=== PATIENT | male | born 1930 | race Caucasian/White ===

== ENCOUNTER 2017-02-01 05:36 | Day surgery (SDC) | payer MEDICARE, OTHER ==
[2017-02-01] VITALS (10 sets, daily range): BP systolic 106–138; BP diastolic 62–79; PULSE 64–92; RESP 11–18; O2SAT 93–96
[~2017-02-01] VITALS: Ht 188 cm; Wt 105.3 kg
[~2017-02-01 05:36] MED LIST: ALFU10TA11 PO; CIPR-231 PO; FOLIC ACID; IRON; Lactated Ringer's 1,000 ML IV ONE; RANI150C4 PO; TRAV5DRO OP
[2017-02-01] MEDS ORDERED: Dexamethasone 4 mg/mL Inj ONE (05:37)
[2017-02-01] MEDS ORDERED: fentaNYL-PF 50 mCg/mL 2 mL Inj ONE (05:37)
[2017-02-01] MEDS ORDERED: Ondansetron 2 mg/mL 2 mL Inj ONE (05:37)
[2017-02-01] MEDS ORDERED: Propofol 10,000 mCg/mL 20 mL Inj ONE (05:37)
[2017-02-01] MEDS ORDERED: Levofloxacin 500 mg/100 mL D5W IV SCH (06:00)
[2017-02-01 06:28] LABS: BASOPHILS % (AUTO) 0.4 % (0-3); EOSINOPHILS % (AUTO) 0.1 % (0-5); MONOCYTES % (AUTO) 15.8 % (4-12); Mean Corpuscular Hemoglobin 30.2 pg (27.0-35.0); Mean Corpuscular Volume 92.5 fL (81-100); Platelet Count 110 bil/L (150-400)
[2017-02-01] MEDS: Acetaminophen IV 1,000 mg IV SCH ×2 (06:30→07:47)
[2017-02-01] MEDS ORDERED: Labetalol 5 mg/mL 4 mL Inj IV PRN (08:00)
[2017-02-01] MEDS ORDERED: MetoCLOpramide 5 mg/mL 2 mL Inj IVPUSH PRN (08:00)
[2017-02-01] MEDS ORDERED: Phenylephrine 10,000 mCg/mL Inj IVPUSH PRN (08:00)
[2017-02-01] MEDS ORDERED: fentaNYL-PF 50 mCg/mL 2 mL Inj IVPUSH PRN (08:00)
[2017-02-01] MEDS ORDERED: Ondansetron 2 mg/mL 2 mL Inj IVPUSH PRN (08:00)
[2017-02-01] MEDS ORDERED: Lactated Ringer's 500 ML IV PRN (08:00)
[2017-02-01] MEDS ORDERED: EPHEDrine Sulfate 50 mg/mL Inj IVPUSH PRN (08:00)
[2017-02-01] MEDS ORDERED: Atropine 0.4 mg/mL Inj IVPUSH PRN (08:00)
[2017-02-01] MEDS ORDERED: Lactated Ringer's 1,000 ML IV SCH (08:00)
--- NOTE | 2017-02-01 08:00 | PCM.HPANE ---
Patient Data Surgeon Admitting Provider: Attending Provider:Aleksandar Frausto MD [facility] Other Provider:Dafne Alford Anesthesia Reason for Visit Bladder Neck Contracture Ht/WT & BMI Height (Feet): 6 Height (Inches): 2.00 Weight (Kilograms): 105.3 Body Mass Index 29.00 Allergies Coded Allergies: Qhhdqfe-Ier-Xzt Reductase Inhibitor (Verified Allergy, Severe, BLEEDING (LIPITOR,SIMVASTATIN), 05/01/16) erythromycin base (Verified Allergy, Severe, ELEV. BLOOD PRESSURE, DIZZINESS, 05/01/16) valsartan (Verified Allergy, Severe, ARRTHYMIAS, 05/01/16) cephalexin (Verified Allergy, Unknown, unknown (has taken cephazolin w/o problems), 05/01/16) pantoprazole (Verified Allergy, Unknown, UNKNOWN, 05/01/16) dabigatran etexilate (Verified Adverse Reaction, Severe, BLEEDING, 05/01/16 ) ciprofloxacin HCl (Verified Adverse Reaction, Mild, HEART "SKIPS", 01/28/17 ) pt currently taking this orally for UTI and tolerating- 01/28/17 Past Anesthesia History Anesthesia History: Denies:: Abnormal Airway, Anesthesia Reactions, Difficult Intubation, Fam Anesthesia Reaction, Fam Malignant Hypertherm, Malignant Hyperthermia Diabetes History Hx Diabetes?: No MRSA MRSA: No Medications Blood Thinner: Aspirin Hypertension Medication: No Home Meds Incl Beta Mesfin: No Reported Medications Ciprofloxacin (Cipro)500 Mg [id number] Mg PO BID Ref 0 01/28/17 Travoprost (Travatan Z)5 Ml Drops5 Ml OP DAILY 01/28/17 Ranitidine 150 Mg [id number] Mg PO BID Ref 0 01/28/17 [iron/folic acid] No Conflict Check1 Tab DAILY 01/28/17 Alfuzosin ER 10 Mg Tab.er.24h10 Mg PO DAILY 01/28/17 Discontinued Reported Medications Tamsulosin (Flomax)0.4 Mg Capsule0.4 Mg PO DAILY Ref 0 01/06/17 Cholecalciferol (Vitamin D3) (Vitamin D3)1,000 Unit Tab.chew1,000 Unit PO BID 05/18/16 Ferrous Sulfate 324 Mg Tablet.dr324 Mg PO DAILY 05/01/16 Ranitidine 150 Mg [id number] Mg PO HS 03/31/16 Travoprost (Travatan Z)5 Ml Drops1-2 Gtts BOTH_EYES HS 03/13/14 History History of ENT Problems?: Yes HEENT History: Positive for:: Cataracts Hearing Problem Sinus Problem Denies:: Abnormal Airway Difficult Intubation Dysphagia Glaucoma TMJ Denture Type: None Teeth Condition: Broken Teeth Missing Teeth Hx of Heart Problems?: Yes Cardiovascular History: Positive for:: 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) Atrial Fibrillation (hx of PAF- ) Hypertension (on no meds) Irregular Heartbeat (HX OF PVC'S) Denies:: Cardiac Surgery Chest Pain Congestive Heart Failure Edema Heart Murmur Pacemaker Rheumatic Fever Thrombophlebitis Valvular Heart Disease Other Cardiac History: < 4METS, no current CP Hx of Respiratory Problem?: No Respiratory History: Positive for:: Dyspnea Denies:: Asthma COPD Chest Surgery Emphysema Hemoptysis Pneumonia Tuberculosis Use of C-PAP Machine Hx Neurologic Problems?: No Neurological History: Positive for:: Dizziness Denies:: Alzheimer's Disease CVA Dementia Headaches Parkinson's Disease Seizures Hx of GI Problems?: Yes Hx of Problems?: Yes Genitourinary History: Positive for:: Kidney Stones (prior hx of ) Urinary Tract Infection (on current course of cipro) Denies:: HX of Hemodialysis HX of Peritoneal Dialysis: No Other Pertinent History: bladder neck contracture current admission problem Male Hx: Positive for:: Prostate Problems (S/P TURP) Denies:: Scrotal Mass Testicular Surgery Skin History: Denies:: History Skin Disorders? Pressure Ulcers Hx Musculoskeletal Problems?: Yes Musculoskeletal History: Positive for:: Back Injury (hx of sciatic pain) Denies:: Joint Replacement Musculoskeletal Trauma (prior hx left hip injury ) Hx of Psycho/Social Problems?: Yes Psycho Social History: Positive for:: Anxiety Denies:: Bipolar Disorder Hx Depression Suicide Attempt Hx Surgeries?: Yes (CECE, TURBT X2-3, R LEG LAC. RPR, T&A, TURP) Hx Any Other Health Problems?: Yes Other History: Positive for:: Cancer (bladder) Hospitalization Denies:: Endocrine Disease Thyroid Disease History Blood Transfusions: Positive for:: Blood Transfusions Denies:: Blood Transfuse Reaction Hx Diabetes: No Hx Alcohol Use: Yes (rarely)Hx Substance Use: No Smoking Status: Former Smoker Have You Smoked inLast 12 mo: No Stop/Bang S-Snoring: Do You Snore Loudly: No T-Tired: feel tired, fatigued: Yes O-Obsered: Observed not breath: No P-Blood Pressure: treated: No B- Body Mass Index > 35 kg/m2: Yes A- Age over 50: Yes N- Neck Large Circumference: No G- Gender Male: Yes TORIN Total Score: 4 TORIN Risk Assessment: High Risk, =/>3 Yes Risk Assessment Category Category 1A: Patient has history of documented sleep apnea, and HAS NOT received any narcotic, sedative or anesthesia administration during this stay. Category 1B: Patient has history of documented sleep apnea, and HAS received any narcotic , sedative or anesthesia administration during this stay Category 2: Patient has SUSPECTED Obstructive Sleep Apnea, and HAS received any narcotic , sedative or anesthesia administration during this stay. Category 3: Patient has SUSPECTED Obstructive Sleep Apnea and HAS NOT received narcotic, sedative or anesthesia administration during this stay. Category 4: Outpatient in Procedural Areas with known sleep apnea or who screen positive for High Risk via the STOP/BANG questionnaire. Exam Exam Vital Signs Vital Signs Date Time Temp Pulse Resp B/P Pulse Ox O2 Delivery O2 Flow Rate FiO2 02/01/17 06:15 36.2 71 18 138/78 95 Room Air General Appearance: Alert, Oriented X3, Cooperative, No Acute Distress HEENT/AIRWAY: MP 2 Lungs: Clear to Auscultation, Normal Air Movement Heart: Exam Unremarkable, Regular Rate/Rhythm, No Murmurs/Rubs/Gallops Meds/Labs/Diagnostics Admission Meds Current Medications Acetaminophen 1000 mg/Premix 100 ml @ 400 mls/hr PREOP IV Last administered on 02/01/17 06:30; Start 02/01/17 at 06:00; Stop 02/02/17 at 06:01 Lactated Ringer's (Lr) 1,000 ml @ 120 mls/hr [id number] ONCE IV Last administered on 02/01/17 05:46; Start 02/01/17 at 05:00; Stop 02/01/17 at 13:19 Labs Test 02/01/17 06:15 Plan Impression Patient chart reviewed, patient interviewed and anesthestic plan with risks, benefits, and alternatives discussed, and informed consent obtained. NPO per Anesth. Guidelines: Yes ASA Physical Status: ASA3 Severe Disease Anesthetic Plan: GA Bene/Risks/Altern/Consents: Yes HP Complete Prior to Induction: Yes Patel Wall MD Feb 01, 2017 07:13
--- NOTE | 2017-02-01 08:47 | PCM.ANEP1 ---
Post Anesthesia PACU Phase 1 Assessment Vital Signs Vital Signs Date Time Temp Pulse Resp B/P Pulse Ox O2 Delivery O2 Flow Rate FiO2 02/01/17 08:40 69 12 127/71 94 Room Air 02/01/17 08:35 67 13 121/68 94 Room Air 02/01/17 08:30 68 12 109/62 95 Simple Mask 8 02/01/17 08:28 36.3 68 13 106/67 94 Simple Mask 8 02/01/17 06:15 36.2 71 18 138/78 95 Room Air Anesthetic Administered: GA Level of Alertness: Sleepy, easy to arouse GREEN's with Equal Strength: Yes Pain: No Nausea or Vomiting: No CV Function & Hydration Stable: Yes Airway Device: Oxygen Delivery: Simple Mask Lungs: Clear to Auscultation, Normal Air Movement PACU Phase 2 Assessment Complications: No Follow up Care: N/A Patient Instructions Provided: N/A Patel Wall MD Feb 01, 2017 08:47
[2017-02-01 09:00] LABS: APPEARANCE,URINE HAZY (CLEAR,HAZY); COLOR,URINE STRAW (YELLOW); OCCULT BLOOD,URINE LARGE (NEGATIVE); UROBILINOGEN,URINE NORMAL (NORMAL)
--- NOTE | 2017-02-01 18:44 | OP ---
[address] [address] OPERATIVE REPORT PATIENT: OTTONIEL KO : 1930 MR#: [id number] ADMIT: 02/01/2017 JOB ID: [id number] DATE OF SURGERY: SURGEON: Aleksandar Frausto MD PREOPERATIVE DIAGNOSIS(ES): 1. Recurrent bladder neck contracture. 2. Recurrent urinary tract infection. POSTOPERATIVE DIAGNOSIS(ES): 1. Recurrent bladder neck contracture. 2. Recurrent urinary tract infection. OPERATION PERFORMED: 1. Cystoscopy and transurethral incision of bladder neck contracture. 2. Dilation. ANESTHESIOLOGIST: Patel Wall MD. ANESTHESIA: General. 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 External sphincter intact. Prostate 4-4.5 cm. Nonobstructing, status post TUR. There is a vertical slit-like bladder neck contracture with poor vascularity around the margins. Radial incisions were made, approximately eight in number, to level of vascularized tissue. Adequate visualization of the bladder was impaired by retention-related hyperemia. PROCEDURE SUMMARY: The patient was positioned supine and was administered general anesthesia. He was then positioned in semi-lithotomy and the lower abdomen, genitalia, and groin were prepped and draped in sterile fashion. A 20-Danish urethrotome was then advanced into the lower urinary tract and under direct visualization with the findings as described above. Next, radial incisions were made at approximately 1, 3, 5, 7, 9, and 11 o'clock to vascularized tissue. The bladder neck opened widely. A wire was passed through the urethrotome. The urethrotome was backloaded off the wire over this. The large sound was advanced over the wire, and the bladder neck was gently dilated. It appeared to be widely patent. The dilator and wire were removed and a 20-Danish silicone catheter was inserted. The balloon was inflated to 10 cc and was placed to gravity drainage. The patient was then repositioned in supine, awakened, transferred to a gurney, and transferred to recovery in stable condition.
== END 2017-02-01 23:59 | disposition home or self-care (01) ==
LOC: SAS 05:36
PROVIDERS: ATTEND Specialist
DX: N32.0 Bladder-neck obstruction (principal); Z87.440 Personal history of urinary (tract) infections; R33.9 Retention of urine, unspecified; I10 Essential (primary) hypertension; I48.91 Unspecified atrial fibrillation; N40.0 Benign prostatic hyperplasia without lower urinary tract symptoms; D69.6 Thrombocytopenia, unspecified; Z87.442 Personal history of urinary calculi; Z85.51 Personal history of malignant neoplasm of bladder
CPT/HCPCS: 36415; 52500; 81000; 85025; J0131; J1100; J2405; J3010; J7120

== ENCOUNTER 2017-02-19 15:50 | Day surgery (SDC) | payer OTHER, MEDICARE ==
[~2017-02-19 15:50] MED LIST changes: -ALFU10TA11 PO; -Lactated Ringer's 1,000 ML IV ONE
[2017-02-19] MEDS ORDERED: fentaNYL-PF 50 mCg/mL 2 mL Inj ONE ×2 (15:55→17:26)
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
[2017-02-19] MEDS ORDERED: 0.9% Sodium Chloride 1,000 ML IV ONE (16:08)
[2017-02-19] MEDS ORDERED: fentaNYL-PF 50 mCg/mL 2 mL Inj IVPUSH ONE (16:10)
[2017-02-19] MEDS ORDERED: HYDROmorphone 1 mg/mL Inj IVPUSH PRN (16:10)
[2017-02-19 16:20] LABS: Mean Corpuscular Hemoglobin 30.5 pg (27.0-35.0); Mean Corpuscular Volume 93.2 fL (81-100)
[2017-02-19 16:34] LABS: INR 1.16 ratio
--- NOTE | 2017-02-19 16:40 | DRSVH ---
PROCEDURE: X-RAY CHEST ONE VIEW, PORTABLE ([id number]) INDICATIONS: Trauma TECHNIQUE: One view of the chest was acquired. COMPARISON: [facility], CR, XR CHEST 1VW (PORTABLE), 05/04/2016, 5:06. FINDINGS: Surgical changes and devices: playground monitor leads are seen over the chest. Lungs and pleura: No pleural effusions or pneumothorax. Lungs are clear. Mediastinum: Mediastinal contours appear normal. Heart size is normal. Bones and chest wall: No suspicious bony lesions. Overlying soft tissues appear unremarkable. IMPRESSION: No acute disease is seen in the supine AP chest for trauma. Dictated by: Jose Arteaga M.D. on 02/19/2017 at 16:37 Approved by: Jose Arteaga M.D. on 02/19/2017 at 16:38
[2017-02-19 16:41] LABS: Lipase 32 U/L (13-60); Magnesium 2.1 mg/dL (1.6-2.6)
--- NOTE | 2017-02-19 16:41 | DRSVH ---
PROCEDURE: X-RAY PELVIS, ONE OR TWO VIEWS ([id number]) INDICATIONS: Trauma TECHNIQUE: One view(s) of the pelvis acquired. COMPARISON: None. FINDINGS: Bones: No fractures or dislocations. No suspicious bony lesions. Soft tissues: Visualized bowel gas pattern is normal. No suspicious soft tissue calcifications. IMPRESSION: No acute bony abnormality is seen in the AP of the pelvis. Dictated by: Jose Arteaga M.D. on 02/19/2017 at 16:39 Approved by: Jose Arteaga M.D. on 02/19/2017 at 16:39
--- NOTE | 2017-02-19 16:42 | DRSVH ---
PROCEDURE: X-RAY LEFT SHOULDER, MINIMUM TWO VIEWS ([id number]) INDICATIONS: ?dislocation, trauma TECHNIQUE: 3 views of the shoulder were acquired. COMPARISON: [facility], CR, XR CHEST 1VW (PORTABLE), 05/04/2016, 5:06. [facility], CR, XR CHEST 1VW (PORTABLE), 02/19/2017, 15:57. FINDINGS: Bones: No fractures but there is evidence of grade 3 separation of the left shoulder, with abnormal elevation of the clavicle in relationship to the distal acromion and also abnormal widening of the co racoclavicular ligament interspace.. No suspicious bony lesions. Visualized ribs appear intact. Soft tissues: No suspicious soft tissue calcifications. IMPRESSION: Grade 3 shoulder separation not previously present on plain film imaging of the chest 04/10 01/22. Acute trauma is presumed. No fracture or glenohumeral joint dislocation and associated. Dictated by: Wesley Doshi M.D. on 02/19/2017 at 16:39 Approved by: Wesley Doshi M.D. on 02/19/2017 at 16:40
--- NOTE | 2017-02-19 16:43 | DRSVH ---
PROCEDURE: X-RAY LEFT WRIST COMPLETE, MINIMUM THREE VIEWS ([id number]) INDICATIONS: ?dislocation, trauma TECHNIQUE: 4 views of the wrist were acquired. COMPARISON: None. FINDINGS: Bones: No fractures or dislocations. No suspicious bony lesions. Moderate osteoarthritis at the ba se of the first metacarpal. Scaphoid view: No trauma found. Soft tissues: No suspicious soft tissue calcifications. 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 Dictated by: Wesley Doshi M.D. on 02/19/2017 at 16:40 Approved by: Wesley Doshi M.D. on 02/19/2017 at 16:41
[2017-02-19 16:46] LABS: BASOPHILS % (AUTO) 0 % (0-3); EOSINOPHILS % (AUTO) 0 % (0-5); MONOCYTES % (AUTO) 10 % (4-12); NEUTROPHILS % (AUTO) 67 % (40-74); Platelet Count 95 bil/L (150-400)
[2017-02-19 16:52] LABS: TROPONIN T < 0.010 ug/L (0.0-0.011)
--- NOTE | 2017-02-19 16:57 | DRSVH ---
PROCEDURE: X-RAY LEFT ELBOW COMPLETE, MINIMUM THREE VIEWS ([id number]) INDICATIONS: ?dislocation, trauma TECHNIQUE: 3 views of the elbow were acquired. COMPARISON: None. FINDINGS: Bones: No fractures or dislocations. No suspicious bony lesions. Chronic osseous irregularity and ossicle at the lateral epicondyle. Chronic olecranon spurring. Soft tissues: No elbow joint effusion. No suspicious soft tissue calcifications. IMPRESSION: No acute fracture. Chronic olecranon spurring. Chronic osseous irregularity at the lateral epicondyle raising possibility of lateral epicondylitis s yndrome. Recommend clinical correlation Dictated by: Oscar Baptiste M.D. on 02/19/2017 at 16:52 Approved by: Oscar Baptiste M.D. on 02/19/2017 at 16:55
[2017-02-19 17:26] LABS: APPEARANCE,URINE SLIGHTLY CLOUDY (CLEAR,HAZY); COLOR,URINE YELLOW (YELLOW)
[2017-02-19] MEDS ORDERED: Phenylephrine/NS-PF 100 mCg/mL 5 mL Syringe IVPUSH ONE (17:26)
[2017-02-19] MEDS ORDERED: EPHEDrine/NS 5 mg/mL 5 mL Syringe ONE (17:26)
[2017-02-19] MEDS ORDERED: Rocuronium 10 mg/mL 5 mL Inj ONE (17:26)
[2017-02-19] MEDS ORDERED: Ketamine 10 mg/mL 20 mL Inj ONE (17:26)
[2017-02-19 17:27] LABS: OCCULT BLOOD,URINE LARGE (NEGATIVE); UROBILINOGEN,URINE NORMAL (NORMAL)
[2017-02-19] MEDS ORDERED: Tranexamic Acid 100 mg/mL 10 mL Inj IV ONE (17:40)
[2017-02-19] MEDS ORDERED: Ketamine 10 mg/mL 20 mL Inj IV PRN (17:40)
[2017-02-19] MEDS ORDERED: Lactated Ringer's 1,000 ML IV ONE ×3 (17:44→19:00)
--- NOTE | 2017-02-19 17:45 | DRSVH ---
PROCEDURE: X-RAY CHEST ONE VIEW, PORTABLE ([id number]) INDICATIONS: TUBE PLACEMENT TECHNIQUE: One view of the chest was acquired. COMPARISON: [facility], CR, XR CHEST 1VW (PORTABLE), 02/19/2017, 15:57. FINDINGS: Surgical changes and devices: Endotracheal tube is projecting at the level of the dawna. Lungs and pleura: No pleural effusions or pneumothorax. Visualization of the left hemithorax is obsc ured by overlying upper extremity and pacer lead. Mediastinum: Mediastinal contours appear normal. Heart size is normal. Bones and chest wall: No suspicious bony lesions. Overlying soft tissues appear unremarkable. IMPRESSION: Endotracheal tube placement as above. Lungs are grossly clear although partially obscured as above. Dictated by: Aruna Gavin M.D. on 02/19/2017 at 17:40 Approved by: Aruna Gavin M.D. on 02/19/2017 at 17:43
[2017-02-19] MEDS ORDERED: Clindamycin 900 mg/50 mL D5W Premix IV ONE (18:26)
[2017-02-19 18:32] LABS: INR 1.4 ratio
[2017-02-19] MEDS ORDERED: Lidocaine 1%-Epi 1:100,000 20 mL Inj INFILTRATE ONE (18:40)
[2017-02-19 18:41] LABS: Magnesium 1.5 mg/dL (1.6-2.6)
--- NOTE | 2017-02-19 18:45 | ABG ---
DateTimeAnalyzed 18:40:00 -_ pH ____7.130 - 7.350 7.450 pCO2 ___58.7__ -mmHg 35.0 45.0 pO2 ___78.5__ -mmHg 69.0 116 HCO3- ___18.7__ -mmol/L 22.0 26.0 ABE __-10.1__ -mmol/L -2.0 2.0 tHb ____9.7__ -g/dL O2Hb ___88.2__ -% COHb ____1.6__ -% MetHb ____0.0__ -% sO2 ___89.6__ -% 25.0 FIO2 ___40.0__ -% Drawn By AF - Date/Time Notified____ 18:45:00 -_ Notified By AF - Notified Whom ___Dr. Toro - B 759 -mmHg tO2 ___12.1__ -Vol% Luis test _Positive -
--- NOTE | 2017-02-19 18:46 | DRSVH ---
PROCEDURE: X-RAY CHEST ONE VIEW, PORTABLE ([id number]) INDICATIONS: LINE PLACEMENT TECHNIQUE: One view of the chest was acquired. COMPARISON: [facility], CR, XR CHEST 1VW (PORTABLE), 02/19/2017, 17:03. FINDINGS: Surgical changes and devices: Endotracheal tube is unchanged. Right-sided central venous catheters ar e present with distal tip overlying the proximal right atrium. Right upper quadrant clips are present . Lungs and pleura: Lungs demonstrate a minimal appearance of increased pulmonary vascular markings. No pneumothorax. Mediastinum: Mediastinal contours appear normal. Heart size is normal. Bones and chest wall: No suspicious bony lesions. Overlying soft tissues appear unremarkable. IMPRESSION: Support lines as above. Minimal increased pulmonary vascular markings. Dictated by: Aruna Gavin M.D. on 02/19/2017 at 18:43 Approved by: Aruna Gavin M.D. on 02/19/2017 at 18:44
[2017-02-19 18:47] LABS: BASOPHILS % (AUTO) 0 % (0-3); EOSINOPHILS % (AUTO) 0 % (0-5); MONOCYTES % (AUTO) 7 % (4-12); Mean Corpuscular Hemoglobin 30.3 pg (27.0-35.0); Mean Corpuscular Volume 94.3 fL (81-100); NEUTROPHILS % (AUTO) 66 % (40-74); Platelet Count 68 bil/L (150-400)
[2017-02-19 19:42] LABS: Mean Corpuscular Hemoglobin 30.2 pg (27.0-35.0); Mean Corpuscular Volume 92.9 fL (81-100)
[2017-02-19 20:26] LABS: INR 1.18 ratio
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
--- NOTE | 2017-02-19 22:41 | PCM.ANEP1 ---
Post Anesthesia PACU Phase 1 Assessment Anesthetic Administered: GA Level of Alertness: Drowsy, not talking GREEN's with Equal Strength: No Pain: No Nausea or Vomiting: No CV Function & Hydration Stable: Yes Airway Device: Endotrachial Tube Oxygen Delivery: Trach Collar, Mechanical Ventilator Lungs: Normal Air Movement Summary transferred via life flight direct from OR. Stable condition. Report to flight [employer] Phase 2 Assessment Patient Instructions Provided: N/A Petros Mendez MD Feb 19, 2017 22:41
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
== END 2017-02-19 23:59 | disposition short-term general hospital (02) ==
LOC: SED 15:50 → ORA 17:25
PROVIDERS: ATTEND Surgery
DX: I97.620 Postprocedural hemorrhage of a circulatory system organ or structure following other procedure (principal); J95.72 Accidental puncture and laceration of a respiratory system organ or structure during other procedure; S19.9XXA Unspecified injury of neck, initial encounter; J98.8 Other specified respiratory disorders; J96.01 Acute respiratory failure with hypoxia; S43.005A Unspecified dislocation of left shoulder joint, initial encounter; S01.01XA Laceration without foreign body of scalp, initial encounter; S60.812A Abrasion of left wrist, initial encounter; S51.012A Laceration without foreign body of left elbow, initial encounter; I10 Essential (primary) hypertension; I48.0 Paroxysmal atrial fibrillation; M16.12 Unilateral primary osteoarthritis, left hip; D69.6 Thrombocytopenia, unspecified; F41.9 Anxiety disorder, unspecified; V87.7XXA Person injured in collision between other specified motor vehicles (traffic), initial encounter; Y93.89 Activity, other specified; Y92.488 Other paved roadways as the place of occurrence of the external cause; Y99.8 Other external cause status; Z85.51 Personal history of malignant neoplasm of bladder; Z88.8 Allergy status to other drugs, medicaments and biological substances; Z87.891 Personal history of nicotine dependence; Z79.82 Long term (current) use of aspirin; Z87.440 Personal history of urinary (tract) infections
CPT/HCPCS: 12001; 31500; 31603; 31605; 35201; 36415; 36430; 36620; 71010; 72170; 73030; 73080; 73110; 80053; 81001; 82306; 82310; 82375; 82803; 83605; 83690; 83735; 84484; 85014; 85018; 85025; 85027; 85384; 85610; 85730; 86850; 86922; 86927; 93005; 94799; 99291; 99292; G0480; J2250; J2370; J3010; J3490; J7120; P9021